=== PATIENT | male | born 1955 ===

== ENCOUNTER 2021-09-07 11:27 | Inpatient (IN) ==
[2021-09-07 12:16] LABS: BUN/Creatinine Ratio 17 (6-26); Blood Urea Nitrogen 18 mg/dL (8-23); Calcium 9.2 mg/dL (8.6-10.3); Carbon Dioxide 25 mEq/L (23-29); Chloride 106 mEq/L (98-107); Glucose 100 mg/dL (70-105); Osmolality,Calculated 286 (280-300); Potassium 4.5 mEq/L (3.5-5.1); Sodium 137 mEq/L (136-145); eGFR For African Americans > 60 (> 60); eGFR For Non-African Americans > 60 (> 60)
[2021-09-07 12:17] LABS: Troponin I < 0.03 ng/mL (< 0.04)
[2021-09-07] MEDS ORDERED: Isovue-370 500 ML BOTTLE IVP ONE ×2 (12:21→12:58)
[2021-09-07 12:42] LABS: Basophils % 0.2 %; Eosinophils # 0.1 K/mcL (0.0-0.6); Eosinophils % 1.7 %; Immature Granulocytes % 0.5 % (0-4); Lymphocytes % 15.9 %; Mean Corpuscular HGB Conc 23.4 g/dL (31.6-35.5); Mean Corpuscular Hemoglobin 14.4 pg (28.0-33.3); Mean Corpuscular Volume 61.5 fL (83.0-100.0); Mean Platelet Volume 9.8 fL (9.4-12.4); Monocytes # 0.4 K/mcL (0.0-1.3); Monocytes % 7.3 %; Neutrophils # 4.5 K/mcL (1.6-8.9); Platelet Count 289 K/mcL (140-400); Red Blood Count 2.08 M/mcL (4.19-5.50); Red Cell Distribution Width 22.4 % (11.5-14.5); Segmented Neutrophils % 74.4 %
[2021-09-07 12:43] LABS: Alanine Aminotransferase 9 Units/L (7-52); Albumin 3.7 g/dL (3.5-5.7); Albumin/Globulin Ratio 1.4 (1.1-2.2); Alkaline Phosphatase 61 Units/L (34-104); Aspartate Amino Transferase 14 Units/L (13-39); Bilirubin,Direct 0.1 mg/dL (0.0-0.2); Bilirubin,Indirect 0.5 mg/dL (0.0-1.0); Bilirubin,Total 0.6 mg/dL (0.3-1.0); Globulin 2.6 g/dL (2.4-3.5); Total Protein 6.3 g/dL (6.4-8.9)
[2021-09-07 12:51] LABS: Hematocrit 12.8 % (37.5-50.1)
[2021-09-07 13:34] LABS: Anisocytosis 1+ (Not Present); Hypochromasia Present (Not Present); Microcytosis Present (Not Present)
[2021-09-07] MEDS ORDERED: Naloxone 0.4 MG/ML INJ IVP PRN (14:16)
[2021-09-07] MEDS ORDERED: 0.9 % Sodium Chloride 250 ML ONE ×3 (14:37→23:16)
[2021-09-07] MEDS ORDERED: cefTRIAXone 1,000 MG in 0.9 % Sodium Chloride Mini Bag 100 ML IVPB SCH (16:00)
[2021-09-07] MEDS ORDERED: Perflutren Lipid Microsphere 1.3 ML in 0.9 % Sodium Chloride 8.7 ML IVP PRN (16:10)
[2021-09-07] MEDS: Pantoprazole 40 MG VIAL IVP SCH (16:40)
[2021-09-07] MEDS: cefTRIAXone 1,000 MG in Water for inj. (sterile) 10 ML IVP SCH (16:41)
[2021-09-07] MEDS: Octreotide 400 MCG in 0.9 % Sodium Chloride 100 ML IVC SCH (17:09)
[2021-09-07 17:56] LABS: INR 1.3; Prothrombin Time 14.6 Seconds (9.4-12.1)
[2021-09-07 18:07] LABS: Immature Reticulocyte % 33.6 % (11.0-38.0); Retculocyte # 0.02 M/mcL (0.05-0.10); Reticulocyte % 0.9 % (1.6-2.8)
[2021-09-07 18:17] LABS: Eosinophils # 0.1 K/mcL (0.0-0.6); Mean Corpuscular HGB Conc 26.4 g/dL (31.6-35.5); Mean Corpuscular Hemoglobin 16.7 pg (28.0-33.3); Mean Corpuscular Volume 63.2 fL (83.0-100.0); Mean Platelet Volume 9.8 fL (9.4-12.4); Nucleated Red Blood Cells 1.3 /100 WBC (0); Platelet Count 271 K/mcL (140-400); Red Blood Count 2.28 M/mcL (4.19-5.50); Red Cell Distribution Width 25.8 % (11.5-14.5); White Blood Count 7.5 K/mcL (4.3-11.1)
[2021-09-07 18:23] LABS: Hemoglobin 3.8 g/dL (12.9-16.9)
[2021-09-07 18:24] LABS: Hematocrit 14.4 % (37.5-50.1)
[2021-09-07 19:03] LABS: Anisocytosis 3+ (Not Present); Hypochromasia Present (Not Present); Lymphocytes # 0.5 K/mcL (0.6-4.6); Microcytosis Present (Not Present); Monocytes # 0.2 K/mcL (0.0-1.3); Neutrophils # 6.5 K/mcL (1.6-8.9); Platelet Estimate Normal (Normal)
[2021-09-07 19:04] LABS: Large Platelets Present (Not Present)
[2021-09-07] MEDS: clonazePAM 0.5 MG TABLET PO PRN (20:52)
[2021-09-07] MEDS: lisinopriL 10 MG TABLET PO SCH (20:52)
[2021-09-07] MEDS: Budesonide/Formoterol 80/4.5 1 PUFF INH IH SCH (22:42)
[2021-09-08] MEDS: Octreotide 400 MCG in 0.9 % Sodium Chloride 100 ML IVC SCH ×2 (00:37→08:47)
[2021-09-08 04:34] LABS: Hematocrit 20.2 % (37.5-50.1)
[2021-09-08 04:42] LABS: Hemoglobin 5.7 g/dL (12.9-16.9)
[2021-09-08] MEDS: Pantoprazole 40 MG VIAL IVP SCH ×2 (05:21→18:13)
[2021-09-08] MEDS ORDERED: *HR* Enoxaparin 40 MG/0.4 ML SYRINGE SQ SCH (06:00)
[2021-09-08] MEDS ORDERED: 0.9 % Sodium Chloride 250 ML ONE (06:40)
[2021-09-08 08:23] LABS: Iron < 10 mcg/dL (65-175); Lactate Dehydrogenase 158 Units/L (140-271); Transferrin 383 mg/dL (203-362)
[2021-09-08 08:49] LABS: Ferritin < 8 ng/mL (20-250)
[2021-09-08] MEDS: Furosemide 20 MG TABLET PO SCH ×2 (09:03→09:39)
[2021-09-08] MEDS: Multivit/Ca/Min/Fe/FA 1 TAB TABLET PO SCH (09:03)
[2021-09-08] MEDS: lisinopriL 10 MG TABLET PO SCH ×3 (09:04→20:40)
[2021-09-08] MEDS: Metoprolol XL (24 HR) Succ 50 MG TAB.ER.24H PO SCH (09:37)
[2021-09-08] MEDS: Budesonide/Formoterol 80/4.5 1 PUFF INH IH SCH ×2 (10:48→21:58)
[2021-09-08 10:49] LABS: Basophils # 0.1 K/mcL (0.0-0.2); Basophils % 1.5 %; Eosinophils # 0.1 K/mcL (0.0-0.6); Eosinophils % 1.4 %; Hematocrit 22.8 % (37.5-50.1); Hemoglobin 6.6 g/dL (12.9-16.9); Immature Granulocytes % 0.7 % (0-4); Lymphocytes # 0.8 K/mcL (0.6-4.6); Lymphocytes % 11.1 %; Mean Corpuscular HGB Conc 28.9 g/dL (31.6-35.5); Mean Corpuscular Hemoglobin 20.8 pg (28.0-33.3); Mean Platelet Volume 9.4 fL (9.4-12.4); Monocytes # 0.5 K/mcL (0.0-1.3); Monocytes % 7.5 %; Neutrophils # 5.6 K/mcL (1.6-8.9); Nucleated Red Blood Cells 2.1 /100 WBC (0); Platelet Count 251 K/mcL (140-400); Red Blood Count 3.18 M/mcL (4.19-5.50); Red Cell Distribution Width 27.7 % (11.5-14.5); Segmented Neutrophils % 77.8 %; White Blood Count 7.2 K/mcL (4.3-11.1)
[2021-09-08 10:50] LABS: Mean Corpuscular Volume 71.7 fL (83.0-100.0)
[2021-09-08 11:33] LABS: Folate 16.8 ng/mL (3.0-16.0)
[2021-09-08 11:34] LABS: Vitamin B12 367 pg/mL (250-1100)
[2021-09-08 12:10] LABS: Hepatitis B Surface Antigen Nonreactive (Nonreactive)
[2021-09-08 12:39] LABS: Hepatitis B Core IgM Nonreactive (Nonreactive)
[2021-09-08 12:40] LABS: Hepatitis A Antibody IgM Nonreactive (Nonreactive); Hepatitis C Virus Antibody Nonreactive (Nonreactive)
[2021-09-08] MEDS: cefTRIAXone 1,000 MG in Water for inj. (sterile) 10 ML IVP SCH (16:18)
[2021-09-08 16:48] LABS: Hematocrit 23.7 % (37.5-50.1); Hemoglobin 6.9 g/dL (12.9-16.9)
[2021-09-08] MEDS ORDERED: SODIUM CHLORIDE/NAHCO3/KCL/PEG 4,000 ML SOLN.RECON PO ONE (17:00)
[2021-09-08] MEDS ORDERED: Furosemide 20 MG/2 ML VIAL IVP ONE (18:39)
[2021-09-08] MEDS ORDERED: 0.9 % Sodium Chloride 250 ML IVC SCH (18:45)
[2021-09-08] MEDS: clonazePAM 0.5 MG TABLET PO PRN (20:44)
[2021-09-09 03:36] LABS: Hematocrit 23.8 % (37.5-50.1); Mean Corpuscular Volume 72.6 fL (83.0-100.0); Red Blood Count 3.28 M/mcL (4.19-5.50); Red Cell Distribution Width 27.8 % (11.5-14.5)
[2021-09-09 03:38] LABS: Basophils # 0.1 K/mcL (0.0-0.2); Eosinophils # 0.2 K/mcL (0.0-0.6); Eosinophils % 2.1 %; Hemoglobin 7.1 g/dL (12.9-16.9); Immature Granulocytes % 1.1 % (0-4); Immature Platelets 5.2 % (1.1-6.1); Lymphocytes % 13.8 %; Mean Corpuscular HGB Conc 29.8 g/dL (31.6-35.5); Mean Corpuscular Hemoglobin 21.6 pg (28.0-33.3); Monocytes # 0.7 K/mcL (0.0-1.3); Monocytes % 10.1 %; Nucleated Red Blood Cells 2.1 /100 WBC (0); Platelet Count 266 K/mcL (140-400); Segmented Neutrophils % 71.9 %; White Blood Count 7.3 K/mcL (4.3-11.1)
[2021-09-09 03:43] LABS: Neutrophils # 5.3 K/mcL (1.6-8.9)
[2021-09-09 03:58] LABS: BUN/Creatinine Ratio 14 (6-26); Blood Urea Nitrogen 14 mg/dL (8-23); Calcium 8.9 mg/dL (8.6-10.3); Carbon Dioxide 24 mEq/L (23-29); Chloride 106 mEq/L (98-107); Glucose 79 mg/dL (70-105); Osmolality,Calculated 285 (280-300); Potassium 3.5 mEq/L (3.5-5.1); Sodium 138 mEq/L (136-145); eGFR For African Americans > 60 (> 60); eGFR For Non-African Americans > 60 (> 60)
[2021-09-09 04:03] LABS: Anisocytosis 2+ (Not Present); Hypochromasia Present (Not Present); Platelet Estimate Normal (Normal); Poikilocytosis 1+ (Not Present)
[2021-09-09] MEDS: Pantoprazole 40 MG VIAL IVP SCH ×2 (06:37→17:33)
[2021-09-09] MEDS: Budesonide/Formoterol 80/4.5 1 PUFF INH IH SCH ×2 (07:21→20:21)
[2021-09-09] MEDS: Metoprolol XL (24 HR) Succ 50 MG TAB.ER.24H PO SCH (08:39)
[2021-09-09] MEDS: Furosemide 20 MG TABLET PO SCH (08:40)
[2021-09-09] MEDS: lisinopriL 10 MG TABLET PO SCH ×2 (08:40→20:07)
[2021-09-09] MEDS: Multivit/Ca/Min/Fe/FA 1 TAB TABLET PO SCH (08:40)
[2021-09-09] MEDS ORDERED: Lidocaine -MPF 2% 2 ML VIAL ONE (12:00)
[2021-09-09] MEDS ORDERED: *HR* Etomidate 40 MG/20 ML VIAL IVP ONE (12:23)
[2021-09-09] MEDS: clonazePAM 0.5 MG TABLET PO PRN (20:08)
[2021-09-09] MEDS ORDERED: Melatonin 3 MG TABLET PO SCH (21:00)
[2021-09-10 02:18] LABS: Hemoglobin 7.1 g/dL (12.9-16.9); Nucleated Red Blood Cells 3.4 /100 WBC (0)
[2021-09-10 02:19] LABS: Basophils # 0.1 K/mcL (0.0-0.2); Eosinophils # 0.2 K/mcL (0.0-0.6); Eosinophils % 3.1 %; Hematocrit 24.4 % (37.5-50.1); Immature Granulocytes % 1.3 % (0-4); Immature Platelets 6.1 % (1.1-6.1); Lymphocytes # 1.1 K/mcL (0.6-4.6); Lymphocytes % 16.1 %; Mean Corpuscular HGB Conc 29.1 g/dL (31.6-35.5); Mean Corpuscular Hemoglobin 21.6 pg (28.0-33.3); Mean Corpuscular Volume 74.4 fL (83.0-100.0); Mean Platelet Volume 9.4 fL (9.4-12.4); Monocytes # 0.7 K/mcL (0.0-1.3); Monocytes % 9.7 %; Neutrophils # 4.9 K/mcL (1.6-8.9); Platelet Count 218 K/mcL (140-400); Red Blood Count 3.28 M/mcL (4.19-5.50); Red Cell Distribution Width 29.4 % (11.5-14.5); Segmented Neutrophils % 68.8 %; White Blood Count 7.1 K/mcL (4.3-11.1)
[2021-09-10 02:26] LABS: Anisocytosis 2+ (Not Present); Platelet Estimate Normal (Normal)
[2021-09-10 02:45] LABS: BUN/Creatinine Ratio 14 (6-26); Blood Urea Nitrogen 15 mg/dL (8-23); Calcium 8.9 mg/dL (8.6-10.3); Carbon Dioxide 26 mEq/L (23-29); Chloride 105 mEq/L (98-107); Glucose 88 mg/dL (70-105); Osmolality,Calculated 286 (280-300); Potassium 3.6 mEq/L (3.5-5.1); Sodium 138 mEq/L (136-145); eGFR For African Americans > 60 (> 60); eGFR For Non-African Americans > 60 (> 60)
[2021-09-10] MEDS: Pantoprazole 40 MG VIAL IVP SCH (06:07)
[2021-09-10] MEDS: Budesonide/Formoterol 80/4.5 1 PUFF INH IH SCH (07:43)
[2021-09-10] MEDS: Metoprolol XL (24 HR) Succ 50 MG TAB.ER.24H PO SCH (09:26)
[2021-09-10] MEDS: Furosemide 20 MG TABLET PO SCH (09:27)
[2021-09-10] MEDS: lisinopriL 10 MG TABLET PO SCH (09:27)
[2021-09-10] MEDS: Multivit/Ca/Min/Fe/FA 1 TAB TABLET PO SCH (09:27)
[2021-09-10 11:42] VITALS: BP 123/64; PULSE 74; TEMP 98.2; O2SAT 97
== END 2021-09-10 13:34 | disposition home or self-care (01) | DRG 812 ==
LOC: 2NNU 11:27 → EMEROOARM 11:27 → 2NNU 14:05 → SUATTDRO 09-08 14:54 → 2ANU 09-09 16:25
PROVIDERS: ADMIT Student in an Organized Health Care Education/Training Program; ATTEND Internal Medicine